=== PATIENT | female | born 2000 | race Caucasian/White ===

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

== ENCOUNTER 2019-03-23 01:54 | Emergency (ER) | payer BC, SELFPAY ==
[2019-03-23 01:55] VITALS: BP 112/77; PULSE 85; RESP 16; TEMP 36.4; O2SAT 99; BMI 24.3
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
[2019-03-23] MEDS: Ibuprofen 600 MG Tablet PO (02:50)
== END 2019-03-23 03:07 | disposition home or self-care (01) ==
PROVIDERS: Emergency Provider Emergency Medicine
DX: S09.90XA Unspecified injury of head, initial encounter (principal); W03.XXXA Other fall on same level due to collision with another person, initial encounter; Y93.63 Activity, rugby; Y99.8 Other external cause status; F32.9 Major depressive disorder, single episode, unspecified; F41.9 Anxiety disorder, unspecified; J45.909 Unspecified asthma, uncomplicated
CPT/HCPCS: 99282

== ENCOUNTER 2021-05-17 20:13 | Emergency (ER) | payer BC, SELFPAY ==
[2021-05-17 20:14] VITALS: BP 125/68; PULSE 101; RESP 18; TEMP 36; O2SAT 100; BMI 25.8
--- NOTE | 2021-05-17 20:24 | RAD_ITS ---
EXAM: XR CHEST, 1 VIEW CLINICAL INDICATION: ASTHMA TECHNIQUE: Frontal view of the chest. This report was created using [employer]apt[employer] report generation technology. COMPARISON: None. FINDINGS: LUNGS AND PLEURAL SPACES: Unremarkable. No consolidation or edema. No pneumothorax. No effusion. HEART: Unremarkable. Cardiac silhouette not enlarged. MEDIASTINUM: Central airways and mediastinal contour are unremarkable. BONES/JOINTS: Unremarkable. SOFT TISSUES: Unremarkable. VASCULATURE: Medical visualized in the region of the aortic arch. This may be an aneurysm coil. RAD/Chest 1 View IMPRESSION: No acute findings in the chest. Electronically Signed: Martin Parra MD at 20:35 EST , Service support ,
[2021-05-17 22:38] VITALS: BP 136/64; PULSE 101; O2SAT 100
[2021-05-17 22:39] VITALS: O2SAT 100
[2021-05-17 23:15] VITALS: PULSE 117; RESP 14; O2SAT 98
[2021-05-17] MEDS: Albuterol 2.5 MG/3 ML VIAL.NEB. INHALATION (23:15)
[2021-05-17] MEDS: Ipratropium/Albuterol Sulfate 3 ML AMPUL.NEB INHALATION (23:18)
[2021-05-17] MEDS: predniSONE 20 MG Tablet 60 MG PO (23:24)
--- NOTE | 2021-05-17 23:33 | CPS ---
x1 Albuterol given to pt. in ER as well
--- NOTE | 2021-05-17 23:33 | EX.ED.DYSGE1 ---
HPI History of Present Illness Chief Complaint: Asthma Narrative Narrative: Patient is a 20-year-old female with past medical history of asthma. Patient states that she has had 2 to 3 days of nasal congestion and cough. Patient states that she went and got tested for Covid and was negative. She states she feels her symptoms are worsening and she has had a history of pneumonia and is concerned for this so therefore comes in for evaluation [facility] Medical History Asthma Home Medications albuterol sulfate 1 - 2 puff INHALATION Q6H PRN PRN 03/23/19 [History Last Taken Unknown] budesonide-formoterol 2 puff INHALATION BID 03/23/19 [History Last Taken Unknown] cetirizine 10 mg PO DAILY 03/23/19 [History Last Taken Unknown] fluoxetine 40 mg PO DAILY 03/23/19 [History Last Taken Unknown] benzonatate 200 mg PO TID PRN #30 cap 05/17/21 [Rx Last Taken Unknown] prednisone 40 mg PO DAILY 7 Days #14 tab 05/17/21 [Rx Last Taken Unknown] Allergy/AdvReac Type Severity Reaction Status Date / Time amoxicillin Allergy Hives Verified 05/17/21 20:16 Social History Smoking Status: Never smoker [facility] ED Constitutional Constitutional ED: Denies chills or fever(s) ENT ENT ED: Reports rhinorrhea and sore throat Cardiovascular Cardiovascular: Denies chest pain Respiratory/Chest Respiratory/Chest: Reports cough and dyspnea Gastrointestinal Gastrointestinal: Denies abdominal pain, diarrhea, nausea or vomiting Genitourinary Genitourinary ED: Denies dysuria Musculoskeletal Musculoskeletal: Denies myalgias Integumentary Denies rash Neurologic Neurologic: Denies headache(s) Hematologic/Lymphatic Hematologic/Lymphatic: Denies easy bleeding or easy bruising EXAM Physical Exam Const Vital Signs: 05/17/21 20:14 05/17/21 22:38 05/17/21 22:39 Temperature 96.8 F L Temperature Source Temporal Pulse Rate 101 H 101 H Respiratory Rate 18 Respiratory Effort Non-Labored Short of Breath Respiratory Depth Normal Respiratory Pattern Normal Blood Pressure 125/68 H 136/64 H Blood Pressure Mean 87 88 Pulse Ox 100 100 Oxygen Delivery Method Room Air Room Air Room Air 05/17/21 23:15 Temperature Temperature Source Pulse Rate 117 H Respiratory Rate 14 Respiratory Effort Normal Short of Breath Respiratory Depth Normal Respiratory Pattern Normal Blood Pressure Blood Pressure Mean Pulse Ox 98 Oxygen Delivery Method Room Air Positive well nourished and well developed General Appearance ED: well developed HEENT Reports moist mucous membranes HEENT Narrative: Cobblestoning the posterior pharynx consistent with sinus drainage but no airway edema or compromise Eyes PERRL and EOMs intact bilaterally Neck supple and no JVD Neck Narrative: Positive anterior cervical lymphadenopathy noted Resp Resp Narrative: Patient is in mild respiratory distress with tachypnea and slight accessory muscle use. Breath sounds are diminished throughout with faint wheezes in the bilateral bases Cardio regular rhythm Rate: tachycardic Extremity normal to inspection Extremity Narrative: No asymmetric edema no pitting edema negative Homans' sign bilaterally Neuro oriented x3 and CN's II-XII intact bilaterally Sensorium / Orientation: alert Motor Exam: strength 5/5 throughout Psych mental status grossly normal Skin no rashes or lesions noted MDM MDM MDM Narrative Medical decision making narrative: Patient presented to the ER which is mild work of breathing but was still satting 100% on room air. An x-ray was obtained which showed no pneumothorax or obvious infiltrate. She had an outpatient Covid test recently and therefore I felt no need to repeat this. Patient was given breathing treatments and prednisone. On reevaluation her breath sounds and work of breathing have improved and her pulse ox remains 100%. Therefore at this time with no pneumonia on x-ray and no hypoxia there is no need for further work-up and patient can be discharged home with symptomatic care Radiography Chest X-Ray - ED: 1 View, Read by ED Physician and No Acute Disease Discharge Plan Triage Chief Complaint: Asthma ED Provider: Tino Pierce Dx/Rx/DC Orders Clinical Impression: Viral upper respiratory illness Instructions: ED Asthma, Acute (Adult), ED URI, Viral W/ Wheezing (Adult) Prescriptions: New prednisone 20 mg tablet 40 mg PO DAILY 7 Days Qty: 14 RF: 0 benzonatate 200 mg capsule 200 mg PO TID PRN (Reason: cough) Qty: 30 RF: 0 No Action cetirizine 10 MG tablet 10 mg PO DAILY RF: 0 albuterol sulfate 1 PUFF inhaler 1 - 2 puff inhalation Q6H PRN PRN (Reason: Wheezing) RF: 0 fluoxetine 20 MG capsule 40 mg PO DAILY RF: 0 budesonide-formoterol 1 INHALER inhaler 2 puff inhalation BID RF: 0 Primary Care Provider: Care Physician,No Primary Referrals: Caren Merchant DO [STAFF PHYSICIAN] - 1 Week if not improving Care Physician,No Primary [Primary Care Provider] - Disposition Disposition: Home, Self Care
[2021-05-18 00:04] VITALS: O2SAT 98
== END 2021-05-18 00:04 | disposition home or self-care (01) ==
PROVIDERS: Emergency Provider Emergency Medicine
DX: J06.9 Acute upper respiratory infection, unspecified (principal); J45.909 Unspecified asthma, uncomplicated; Z79.899 Other long term (current) drug therapy
CPT/HCPCS: 71045; 94640; 99251; 99282; G0463